=== PATIENT | female | born 1975 | race Hispanic/Latino ===

== ENCOUNTER 2017-12-02 10:36 | Outpatient (CLI) | payer OTHER ==
--- NOTE | 2017-12-02 12:22 | RAD ---
TWO VIEWS LEFT TIBIA AND FIBULA: Date: 12-02-17 History: Injury to left lower extremity. FINDINGS: There is no evidence of a fracture, dislocation, or other osseous abnormalities involving the left ti donnie or fibula. IMPRESSION: No acute osseous abnormality. POS: [facility]
== END 2017-12-02 10:37 | disposition home or self-care (01) ==
LOC: NAV RAD 10:36
PROVIDERS: ATTEND Nurse Practitioner Family
DX: S89.92XA Unspecified injury of left lower leg, initial encounter (principal)

== ENCOUNTER 2023-10-09 12:01 | Outpatient (CLI) | payer OTHER | END 2023-10-09 12:02 | disposition home or self-care (01) | LOC: NAV RAD 12:01 | PROVIDERS: ATTEND Nurse Practitioner Family | DX: M25.512 Pain in left shoulder (principal) ==